=== PATIENT | female | born 1970 | race Caucasian/White ===

== ENCOUNTER 2017-08-31 10:16 | Emergency (ER) | payer BC, OTHER ==
[2017-08-31] MEDS ORDERED: Sodium Chloride 0.9% 5 ML Syringe FLUSH PRN (10:28)
[2017-08-31] MEDS ORDERED: Sodium Chloride 0.9% 1,000 ML IV STA (10:28)
[2017-08-31] MEDS ORDERED: Ketorolac 30 MG/ML SDV IVPUSH ONE (10:30)
[2017-08-31] MEDS ORDERED: HYDROmorphone 1 MG/ML Syringe IVPUSH ONE (10:30)
[2017-08-31] MEDS ORDERED: Ondansetron 4 MG/2 ML SDV IVPUSH ONE (10:30)
--- NOTE | 2017-08-31 10:42 | EDM.PDOC ---
ED HPI GENERAL MEDICAL PROBLEM - General Chief Complaint: Gastrointestinal Problem Stated Complaint: ABDOMINAL PAIN Time Seen by Provider: 08/31/17 10:27 Source of Information: Reports: Patient History Limitations: Reports: No Limitations - History of Present Illness INITIAL COMMENTS - FREE TEXT/NARRATIVE: PATIENT IS A 47-YEAR-OLD FEMALE WHO PRESENTS TO THE EMERGENCY DEPARTMENT THIS MORNING VIA EMS FOR COMPLAINT OF LEFT ABDOMINAL AND LEFT FLANK PAIN. PATIENT STATES THAT PAIN BEGAN ABOUT 730 THIS MORNING AND HAS STEADILY INCREASED IN INTENSITY. PATIENT STATES SHE FEELS NAUSEATED AND VOMITED ONCE. PATIENT STATES THAT IT FEELS LIKE IT'S TRAVELING DOWN AND WAS UNCOMFORTABLE TO URINATE. PATIENT DENIES ANY HISTORY OF RENAL CALCULI IN THE PAST. SHE DOES HAVE A HISTORY OF CHOLECYSTECTOMY WITH NO OTHER ABDOMINAL SURGICAL PROCEDURES. PATIENT DENIES CHEST PAIN, SHORTNESS OF BREATH, BOWEL CHANGES, OUT OF COUNTRY TRAVEL, OR FEVER. Onset: Today Onset Date: 08/31/17 Onset Time: 07:30 Duration: Getting Worse Location: Reports: Abdomen Quality: Reports: Sharp Severity: Moderate Improves with: Reports: None Worsens with: Reports: Movement Context: Denies: Trauma Associated Symptoms: Reports: Nausea/Vomiting - Related Data Allergies Allergy/AdvReac Type Severity Reaction Status Date / Time No Known Drug Allergies Allergy NKDA Verified 08/31/17 11:20 Home Meds: Home Meds Metoprolol Succinate [Toprol XL] 50 mg PO DAILY 12/20/15 [History] atorvaSTATin [Lipitor] 40 mg PO BEDTIME 12/20/15 [History] metFORMIN HCl [Glucophage] 1,000 mg PO BID 12/20/15 [History] Acetaminophen [Tylenol] 650 mg PO DAILY 08/31/17 [History] Lisinopril 15 mg PO DAILY 08/31/17 [History] Omeprazole 20 mg PO DAILY 08/31/17 [History] glipiZIDE [Glipizide Xl] 5 mg PO DAILY 08/31/17 [History] Past Medical History HEENT History: Reports: Impaired Vision Cardiovascular History: Reports: High Cholesterol, Hypertension Respiratory History: Reports: Pneumonia, Recurrent [employer] SPECIALIST History: Reports: Musculoskeletal History: Reports: Back Pain, Chronic, Gout Endocrine/Metabolic History: Reports: Diabetes, Type II - Infectious Disease History Infectious Disease History: Reports: Chicken Pox - Past Surgical History GI Surgical History: Reports: Cholecystectomy Social & Family History - Family History Cardiac: Reports: CAD, [place] Other Cardiac Family History: mother and father Endocrine/Metabolic: Reports: Diabetes, Type I Other Endocrine/Metabolic Family History: mother ED ROS GENERAL - Review of Systems Review Of Systems: ROS reveals no pertinent complaints other than HPI. Constitutional: Reports: No Symptoms HEENT: Reports: No Symptoms Respiratory: Reports: No Symptoms Cardiovascular: Reports: No Symptoms Endocrine: Reports: No Symptoms GI/Abdominal: Reports: Abdominal Pain, Nausea, Vomiting : Reports: Dysuria, Flank Pain (LEFT) Musculoskeletal: Reports: No Symptoms Skin: Reports: No Symptoms Neurological: Reports: No Symptoms Psychiatric: Reports: No Symptoms Hematologic/Lymphatic: Reports: No Symptoms Immunologic: Reports: No Symptoms ED EXAM, GI/ABD - Physical Exam Exam: See Below Exam Limited By: No Limitations General Appearance: Alert, WD/WN, Mild Distress Throat/Mouth: Normal Inspection, Normal Oropharynx, No Airway Compromise Head: Atraumatic, Normocephalic Neck: Normal Inspection, Supple Respiratory/Chest: No Respiratory Distress, Lungs Clear, Normal Breath Sounds, No Accessory Muscle Use, Chest Non-Tender Cardiovascular: Regular Rate, Rhythm, No Rub GI/Abdominal Exam: Normal Bowel Sounds, Soft, No Organomegaly, No Distention, No Abnormal Bruit, No Mass, Tender (LEFT LOWER QUADRANT AND SUPRAPUBIC) Back Exam: CVA Tenderness (L). No: CVA Tenderness (R) Extremities: Normal Inspection, No Pedal Edema Neurological: Alert, Oriented, Normal Cognition Psychiatric: Normal Affect, Normal Mood Skin Exam: Warm, Dry, Intact, Normal Color, No Rash Lymphatic: No Adenopathy Course - Orders/Labs/Meds Orders: Active Orders 24 hr Category Date Time Status Peripheral IV Care [RC] . DIRECTED Care 08/31/17 10:29 Ordered Abdomen Pelvis wo Cont [CT] Stat Exams 08/31/17 10:28 Ordered CBC WITH AUTO DIFF [HEME] Stat Lab 08/31/17 10:28 Ordered COMPREHENSIVE METABOLIC PN,CMP [CHEM] Stat Lab 08/31/17 10:28 Ordered CULTURE URINE [RM] Stat Lab 08/31/17 10:28 Ordered LIPASE [CHEM] Stat Lab 08/31/17 10:28 Ordered UA W/MICROSCOPIC [URIN] Stat Lab 08/31/17 10:28 Ordered Sodium Chloride 0.9% [Normal Saline] 1,000 ml Med 08/31/17 10:28 Ordered IV .BOLUS Sodium Chloride 0.9% [Syrex Flush] Med 08/31/17 10:28 Ordered 5 ml FLUSH Q8HR PRN Peripheral IV Insertion Adult [OM.PC] Stat Oth 08/31/17 10:28 Ordered Medication Orders Sodium Chloride (Normal Saline) 1,000 mls @ 1,000 mls/hr IV .BOLUS STA Stop: 08/31/17 11:27 Sodium Chloride (Syrex Flush) 5 ml FLUSH Q8HR PRN PRN Reason: Keep Vein Open Meds: Medications Generic Name Dose Route Start Last Admin Trade Name Freq PRN Reason Stop Dose Admin Sodium Chloride 1,000 mls @ 1,000 mls/hr 08/31/17 10:28 Normal Saline IV 08/31/17 11:27 .BOLUS STA Sodium Chloride 5 ml 08/31/17 10:28 Syrex Flush FLUSH Q8HR PRN Keep Vein Open Discontinued Medications Generic Name Dose Route Start Last Admin Trade Name Freq PRN Reason Stop Dose Admin Hydromorphone HCl 0.5 mg 08/31/17 10:30 Dilaudid IVPUSH 08/31/17 10:31 ONETIME ONE Ketorolac Tromethamine 30 mg 08/31/17 10:30 Toradol IVPUSH 08/31/17 10:31 ONETIME ONE Ondansetron HCl 4 mg 08/31/17 10:30 Zofran IVPUSH 08/31/17 10:31 ONETIME ONE - Radiology Interpretation Free Text/Narrative:: CT abdomen and pelvis without contrast shows 3 millimeter stone at the left UVJ with mild left hydronephrosis. - Re-Assessments/Exams Free Text/Narrative Re-Assessment/Exam: 08/31/17 12:05 Patient afebrile, nontoxic appearing, vital signs stable, pain controlled. is at bedside. Patient will be given urinary strainer and collection cup and will submit calculi to [facility]. Patient will follow-up at [facility] in 1-2 days for a referral to urology. Departure - Departure Time of Disposition: 12:06 Disposition: Home, Self-Care 01 Condition: Good Clinical Impression: Renal calculus, left - Discharge Information Instructions: Pain Medicine Instructions, [id number], Abdominal Pain, Adult, [id number], Kidney Stones, [id number] Referrals: Zhanna Wiggins, [employer] [Primary Care Provider] - Forms: ED Department Discharge Additional Instructions: Follow-up at clinic [facility] in 1-2 days for direction on urology follow- up. Return to emergency department sooner if symptoms continue or worsen. - My Orders Last 24 Hours: My Active Orders 08/31/17 10:28 Abdomen Pelvis wo Cont [CT] Stat CBC WITH AUTO DIFF [HEME] Stat COMPREHENSIVE METABOLIC PN,CMP [CHEM] Stat CULTURE URINE [RM] Stat LIPASE [CHEM] Stat UA W/MICROSCOPIC [URIN] Stat Sodium Chloride 0.9% [Normal Saline] 1,000 ml IV .BOLUS Sodium Chloride 0.9% [Syrex Flush] 5 ml FLUSH Q8HR PRN Peripheral IV Insertion Adult [OM.PC] Stat 08/31/17 10:29 Peripheral IV Care [RC] . DIRECTED - Assessment/Plan Last 24 Hours: My Active Orders 08/31/17 10:28 Abdomen Pelvis wo Cont [CT] Stat CBC WITH AUTO DIFF [HEME] Stat COMPREHENSIVE METABOLIC PN,CMP [CHEM] Stat CULTURE URINE [RM] Stat LIPASE [CHEM] Stat UA W/MICROSCOPIC [URIN] Stat Sodium Chloride 0.9% [Normal Saline] 1,000 ml IV .BOLUS Sodium Chloride 0.9% [Syrex Flush] 5 ml FLUSH Q8HR PRN Peripheral IV Insertion Adult [OM.PC] Stat 08/31/17 10:29 Peripheral IV Care [RC] . DIRECTED Assessment:: Renal calculi Plan: Follow-up at [facility] for urology
[2017-08-31 11:31] LABS: CHLORIDE,CL 106 mmol/L (98-115); SODIUM,NA 141 mmol/L (136-145)
[2017-08-31 11:37] VITALS: BP 149/81
[2017-08-31] MEDS ORDERED: cefTRIAXone 1 GM Vial IVPUSH ONE (11:46)
== END 2017-08-31 12:20 | disposition home or self-care (01) ==
LOC: KA.ED 10:16
DX: N13.2 Hydronephrosis with renal and ureteral calculous obstruction (principal); E78.00 Pure hypercholesterolemia, unspecified; I10 Essential (primary) hypertension; E11.9 Type 2 diabetes mellitus without complications; Z79.84 Long term (current) use of oral hypoglycemic drugs; Z79.899 Other long term (current) drug therapy
CPT/HCPCS: 36415; 74176; 80053; 81001; 83690; 85025; 87086; 96361; 96374; 96375; 99285; J0696; J1170; J1885; J2405; J7030

== ENCOUNTER 2023-05-24 17:09 | Emergency (ER) | payer BC, MEDICAID, OTHER ==
[2023-05-24] MEDS ORDERED: Sodium Chloride 0.9% 10 ML Syringe FLUSH PRN (17:42)
[2023-05-24 17:48] LABS: BASOPHILS ABSOLUTE AUTO 0.01 10^3/uL (0.00-0.10); BASOPHILS PERCENT AUTO 0.2 % (0.0-1.0); HEMOGLOBIN 13.7 g/dL (12.0-16.0); LYMPHOCYTES ABSOLUTE AUTO 1.47 10^3/uL (1.00-4.00); LYMPHOCYTES PERCENT AUTO 28.5 % (20.0-40.0); MEAN CORPUSCULAR HEMOGLOBIN 29.7 pg (27.0-31.0); MEAN CORPUSCULAR HGB CONC 31.9 g/dL (32.0-36.0); MEAN CORPUSCULAR VOLUME 93.3 fL (82.0-92.0); MEAN PLATELET VOLUME 10.6 fL (7.4-10.4); MONOCYTES ABSOLUTE AUTO 0.46 10^3/uL (0.10-0.80); MONOCYTES PERCENT AUTO 8.9 % (2.0-8.0); NEUTROPHILS ABSOLUTE AUTO 3.22 10^3/uL (2.50-7.00); NEUTROPHILS PERCENT AUTO 62.4 % (50.0-70.0); PLATELET COUNT,PLT 165 10^3/uL (150-400); RED BLOOD CELL COUNT 4.61 10^6/uL (3.80-5.50); RED CELL DISTRIBUTION WIDTH 13.2 % (11.5-14.5); WHITE BLOOD CELL COUNT,WBC 5.16 10^3/uL (5.00-10.00)
[2023-05-24 17:55] LABS: ALBUMIN 3.41 g/dL (3.40-5.00); ANION GAP 14.6 mmol/L (5-15); BILIRUBIN TOTAL 0.3 mg/dL (0.2-1.0); C-REACTIVE PROTEIN 1.4 mg/dL (0.00-0.50); CALCIUM 8.6 mg/dL (8.7-10.3); CARBON DIOXIDE,CO2 29.6 mmol/L (21.0-32.0); CREATININE 0.61 mg/dL (0.51-1.17); EST CRCL DRUG DOSING (CG) 104.91 mL/min; MAGNESIUM 1.8 mg/dL (1.8-2.4); PHOSPHORUS 3.4 mg/dL (2.6-4.7); POTASSIUM,K 4.2 mmol/L (3.5-5.1); PROTEIN TOTAL,TP 7.5 g/dL (6.4-8.2)
[2023-05-24 18:01] LABS: LACTIC ACID 1.2 mmol/L (0.4-2.0)
[2023-05-24] MEDS: Albuterol/Ipratropium 3.0-0.5 MG/3 ML Neb Soln NEB ONE ×2 (18:11→19:52)
[2023-05-24] MEDS: Benzonatate 100 MG Cap PO ONE ×2 (18:11→19:53)
[2023-05-24 18:23] LABS: CORONAVIRUS COVID-19 NAA NEGATIVE (NEGATIVE); INFLUENZA A NAA POSITIVE (NEGATIVE); INFLUENZA B NAA NEGATIVE (NEGATIVE); RESPIRATORY SYNCYTIAL VIR NAA NEGATIVE (NEGATIVE)
[2023-05-24] MEDS: Sodium Chloride 0.9% 500 ML IV SCH (18:36)
[2023-05-24] MEDS: Metoprolol Tartrate 5 MG/5 ML SDV IVPUSH ONE (18:37)
[2023-05-24] MEDS: Codeine/guaiFENesin 10-100 MG/5 ML Syrup 5 ML Cup PO ONE (19:52)
[2023-05-25 00:54] VITALS: BP 131/61; PULSE 89
== END 2023-05-24 20:03 | disposition home or self-care (01) ==
LOC: KA.ED 17:09
DX: R53.81 Other malaise (principal); I49.3 Ventricular premature depolarization; E11.9 Type 2 diabetes mellitus without complications; R00.0 Tachycardia, unspecified; J10.1 Influenza due to other identified influenza virus with other respiratory manifestations; I10 Essential (primary) hypertension; Z79.899 Other long term (current) drug therapy
CPT/HCPCS: 0241U; 36415; 71045; 80053; 83605; 83735; 83880; 84100; 84484; 85025; 86140; 93010; 94640; 96361; 96374; 99284; 99285-25; A9270-GY; J3490; J7040; J7620-GY